=== PATIENT | male | born 1975 | race Caucasian/White ===

== ENCOUNTER 2018-08-24 08:10 | Observation (INO) | payer MEDICARE ==
[2018-08-24] MEDS ORDERED: DUONEB 0.5-3 MG/3 ml Neb IH ONE ×2 (08:14→08:49)
--- NOTE | 2018-08-24 08:32 | ERPHSYRPT ---
- History of Present Illness Time Seen by Provider: 08/24/18 08:26 Source: patient Exam Limitations: no limitations Patient Subjective Stated Complaint: Pt states "I think I have a blood clot in my lungs again. I started getting a dry cough and short of breath this morning. I have COPD as well and am on 2 lpm O2 every day." Triage Nursing Assessment: Pt alert and oriented X 3, skin pwd Pt ambualtes with an upright steady gait, able to speak in clear full sentences. Pt arrived with no oxygen on stating that his battery on his oxygen machine. PT tachypneic and a little anxious. Physician History: 42-year-old white male with history of COPD, pulmonary embolism, DVT, diabetes type 2, cellulitis in the right leg Patient arrives with complaint of shortness of breath dry cough symptoms since 6 :00 this morning he states he feels like he has a blood clot in his lungs he states he had similar symptoms when a blood clot was noted last time. Patient is not having any chest chest pain no nausea no vomiting no fevers. Past medical history includes COPD, pulmonary embolism, diabetes type 2, cellulitis right lower extremities, DVT Past surgical history includes right knee replacement Social history former smoker Timing/Duration: today (6 AM) Activities at Onset: rest Severity of Dyspnea-Max: moderate Severity of Dyspnea-Current: moderate Possible Cause: occasional episodes (Similar episode with PE in the past.) Modifying Factors: Improves With: nothing Associated Symptoms: constant, cough, No intermittent, No anxiety, No chest pain /discomfort, No edema, No fever, No insomnia, No loss of appetite, No lightheadedness, No wheezing, No weakness, No ankle swelling, No chills, No hemoptysis, No calf pain, No dizziness, No heaviness, No heart racing, No lightheadedness, No leg swelling, No muscle spasms feet, No muscle spasms hands , No painful breathing, No productive cough, No sweating, No tightness, No tingling face, No tingling hands Allergies/Adverse Reactions: No Known Drug Allergies Allergy (Verified 08/24/18 10:35) Home Medications: Furosemide 40 mg [Lasix 40 MG] 40 mg PO DAILY 08/09/15 [History] Pregabalin [Lyrica 100Mg] 200 mg PO BID 09/06/16 [History] Insulin Glargine [Lantus Insulin] 15 unit SQ 2000 07/28/17 [History] Metformin HCl [Glucophage] 1,000 mg PO BID 07/28/17 [History] Oxycodone / APAP 10/325 mg [Oxycodone-Acetaminophen 10-325] 1 tab PO Q6HPRN PRN 09/09/17 [History] Albuterol 8 gm Mdi Hfa [Ventolin Hfa MDI] 1 - 2 puffs IH Q4-6HPRN PRN 05/04 [History] Amlodipine Besylate [Norvasc] 10 mg PO DAILY 08/24/18 [History] Glipizide [Glipizide ER] 10 mg PO DAILY 08/24/18 [History] Metoprolol Succinate 100 mg [Toprol Xl 100 MG] 200 mg PO DAILY 08/24/18 [ History] Pravastatin Sodium 40 mg PO DAILY 08/24/18 [History] Warfarin Sodium 12 mg PO HS 08/24/18 [History] Hx Tetanus, Diphtheria Vaccination/Date Given: Yes Hx Influenza Vaccination/Date Given: Yes Hx Pneumococcal Vaccination/Date Given: Yes Immunizations Up to Date: Yes - Review of Systems Constitutional: No Fever, No Chills Eyes: No Symptoms Ears, Nose, & Throat: No Symptoms Respiratory: Cough, Dyspnea Cardiac: No Chest Pain, No Edema, No Syncope Abdominal/Gastrointestinal: No Abdominal Pain, No Nausea, No Vomiting, No Diarrhea Genitourinary Symptoms: No Dysuria Musculoskeletal: Other (chronic lower extremity pain) Skin: No Rash Neurological: No Dizziness, No Focal Weakness, No Sensory Changes Psychological: No Symptoms Endocrine: No Symptoms All Other Systems: Reviewed and Negative - Past Medical History Pertinent Past Medical History: Yes Neurological History: No Pertinent History ENT History: No Pertinent History Cardiac History: Deep Vein Thrombosis, Hypertension Respiratory History: COPD, Pulmonary Embolism Endocrine Medical History: Diabetes Type II Musculoskeletal History: No Pertinent History GI Medical History: No Pertinent History History: No Pertinent History Psycho-Social History: No Pertinent History Male Reproductive Disorders: No Pertinent History - Past Surgical History Past Surgical History: Yes Neuro Surgical History: No Pertinent History Cardiac: No Pertinent History Respiratory: No Pertinent History Gastrointestinal: No Pertinent History Genitourinary: No Pertinent History Musculoskeletal: Orthopedic Surgery Male Surgical History: No Pertinent History Other Surgical History: KNEE REPLACEMENT R KNEE - Social History Smoking Status: Former smoker How long have you smoked: 25 YEARS Exposure to second hand smoke: No Drug Use: none Patient Lives Alone: No Significant Family History: no pertinent family hx - Nursing Vital Signs Nursing Vital Signs: Initial Vital Signs Temperature 98.8 F 08/24/18 08:11 Pulse Rate 107 H 08/24/18 08:11 Respiratory Rate 24 08/24/18 08:11 Blood Pressure 122/84 08/24/18 08:11 O2 Sat by Pulse Oximetry 95 08/24/18 08:11 Pain Scale Pain Intensity 0 - Physical Exam General Appearance: mild distress, alert Eye Exam: PERRL/EOMI Ears, Nose, Throat Exam: hearing grossly normal, normal ENT inspection, normal pharynx, No abnormal TM (R), No abnormal TM (L), No sinus pain/drainage, No hearing decreased, No nasal congestion, No pharyngeal erythema, No tonsillar exudate, No tonsillar swelling Neck Exam: normal inspection, supple Respiratory Exam: normal breath sounds, lungs clear, airway intact, No wheezing Cardiovascular/Chest Exam: normal heart sounds, regular rate/rhythm Abdominal/Gastrointestinal Exam: soft, No tenderness, No distention, No mass Extremity Exam: non-tender, normal range of motion, normal inspection, no calf tenderness, no pedal edema Peripheral Pulses Exam: dorsalis-pedis (R): 2+, dorsalis-pedis (L): 2+ Neurologic Exam: alert, oriented x 3, cooperative, accounting associate II-XII nml as tested, sensation nml, No motor deficits Skin Exam: other (chronic darkening of skin lower extremities) SpO2 Interpretation: normal (95%) SpO2: 95 - Course Nursing assessment & vital signs reviewed: Yes EKG Interpreted by Me: RATE (95 bpm), NORMAL AXIS, Other (EKG sinus arrhythmia, 95 bpm, normal axis, complete right bundle block no acute st or t wave changes, compared to October 22, 2016) - Radiology Exams Chest X-ray Interpretation: Discussed w/ radiologist (chest x-ray: Stable non-acute chest with evidence for old granulomatous disease.) Ordered Tests: Active Orders 24 hr Category Date Time Status Bedrest with BRP/BSC ROUTINE Activity 08/24/18 10:07 Active Accucheck ACHS Care 08/24/18 10:06 Active Accucheck STAT Care 08/24/18 09:58 Active Call Admit Doctor for Orders ON ADMISSION Care 08/24/18 10:06 Active [place] STAT Care 08/24/18 08:15 Active Code Status Order ROUTINE Care 08/24/18 10:06 Active EKG-ER Only STAT Care 08/24/18 08:14 Active IV Care Q6H Care 08/24/18 10:06 Active IV Insertion STAT Care 08/24/18 08:14 Active Oxygen-ED Only Nasal Cannula 2 lpm Care 08/24/18 08:[address] in Observation ROUTINE Care 08/24/18 10:06 Active Pulse Oximetry (ED) STAT Care 08/24/18 08:14 Active Telemetry q6h Care 08/24/18 10:06 Active Weight,Daily 0600 Care 08/24/18 10:06 Active 2000 Calorie ADA Diet 08/24/18 Lunch Completed CHEST 1 VIEW (PORTABLE) Stat Exams 08/24/18 08:15 Completed BLOOD CULTURE Stat Lab 08/24/18 08:25 Received CBC W DIFF Stat Lab 08/24/18 08:30 Completed CMP Stat Lab 08/24/18 08:30 Completed D-DIMER QUANTITATION Stat Lab 08/24/18 08:30 Completed Glucose,Critical Care Urgent Lab 08/24/18 08:16 Completed NT PRO BNP Stat Lab 08/24/18 08:30 Completed PROTIME WITH INR Stat Lab 08/24/18 08:30 Completed PTT Stat Lab 08/24/18 08:30 Completed TROPONIN Q3H Lab 08/24/18 08:30 Completed TROPONIN Q3H Lab 08/24/18 11:10 Completed TROPONIN Q3H Lab 08/24/18 14:10 Completed VENOUS BLOOD GAS Stat Lab 08/24/18 08:14 Completed Oxygen Nasal Cannula 2 lpm RT 08/24/18 10:06 Active Peak Expiratory Flow Rate ONCE RT 08/24/18 08:45 Active Pulse Oximetry CONTINUOUS RT 08/24/18 10:07 Active Respiratory Nebulizer STAT RT 08/24/18 10:15 Completed Respiratory Therapy Assessment DAILY RT 08/24/18 08:45 Completed Respiratory Therapy Assessment DAILY RT 08/24/18 10:13 Active Respiratory Therapy Consult ROUTINE RT 08/24/18 10:06 Completed Medication Summary Discontinued Medications Generic Name Dose Route Start Last Admin Trade Name Freq PRN Reason Stop Dose Admin Acetaminophen 650 mg 08/24/18 14:54 08/24/18 15:18 Tylenol 325 Mg PO 09/23/18 14:53 650 mg Q4H PRN PRN Administration PAIN AND/OR FEVER Albuterol Sulfate 2.5 mg 08/24/18 10:12 08/24/18 10:20 Proventil 2.5 Mg/3 Ml Neb IH 08/24/18 10:13 2.5 mg STAT ONE Administration Albuterol Sulfate Confirm 08/24/18 10:12 Proventil 2.5 Mg/3 Ml Neb Administered 08/24/18 10:13 Dose 2.5 mg IH .STK-MED ONE Albuterol/Ipratropium 3 ml 08/24/18 08:14 08/24/18 08:51 Duoneb 0.5-3 Mg/3 Ml Neb IH 08/24/18 08:15 3 ml STAT ONE Administration Albuterol/Ipratropium Confirm 08/24/18 08:49 Duoneb 0.5-3 Mg/3 Ml Neb Administered 08/24/18 08:50 Dose 3 ml IH .STK-MED ONE Albuterol/Ipratropium 3 ml 08/24/18 10:06 Duoneb 0.5-3 Mg/3 Ml Neb IH 09/23/18 10:05 Q4HPRN PRN SHORTNESS OF BREATH/WHEEZING Albuterol/Ipratropium 3 ml 08/24/18 13:00 Duoneb 0.5-3 Mg/3 Ml Neb IH 09/23/18 12:59 TIDRT JOHN Amlodipine Besylate 10 mg 08/24/18 14:00 08/24/18 14:45 Norvasc 5 Mg PO 09/23/18 13:59 10 mg DAILY JOHN Administration Furosemide 40 mg 08/24/18 14:00 08/24/18 14:45 Lasix 40 Mg PO 09/23/18 13:59 40 mg DAILY JOHN Administration Sodium Chloride 1,000 mls @ 999 mls/hr 08/24/18 09:14 08/24/18 10:19 Sodium Chloride 0.9% 1000 Ml IV 08/24/18 10:14 Infused .Q1H1M STA Infusion Sodium Chloride Confirm 08/24/18 09:28 Sodium Chloride 0.9% 1000 Ml Administered 08/24/18 09:29 Dose 1,000 mls @ ud .ROUTE .STK-MED ONE Sodium Chloride 1,000 mls @ 100 mls/hr 08/24/18 10:15 08/24/18 12:00 Sodium Chloride 0.9% 1000 Ml IV 09/23/18 10:14 100 mls/hr .Q10H JOHN Administration Insulin Glargine 15 unit 08/24/18 20:00 Lantus Insulin SQ 09/23/18 19:59 2000 JOHN Insulin Human Regular 7 unit 08/24/18 10:05 08/24/18 10:12 Novolin R SQ 08/24/18 10:06 7 unit STAT ONE Administration Insulin Human Regular 0 unit 08/24/18 10:06 08/24/18 17:01 Novolin R SQ 09/23/18 10:05 11 unit UD PRN Administration HYPERGLYCEMIA Losartan Potassium 100 mg 08/24/18 14:00 08/24/18 14:45 Cozaar 50 Mg PO 09/23/18 13:59 100 mg DAILY JOHN Administration Methylprednisolone Sodium Succinate 125 mg 08/24/18 09:58 08/24/18 10:05 Solu-Medrol 125 Mg IV 08/24/18 09:59 125 mg STAT ONE Administration Methylprednisolone Sodium Succinate Confirm 08/24/18 10:04 Solu-Medrol 125 Mg Administered 08/24/18 10:05 Dose 125 mg .ROUTE .STK-MED ONE Methylprednisolone Sodium Succinate 80 mg 08/24/18 10:30 08/24/18 10:39 Solu-Medrol 125 Mg IV 09/23/18 10:29 Not Given Q6H JOHN Methylprednisolone Sodium Succinate 80 mg 08/24/18 18:00 Solu-Medrol 125 Mg IV 09/23/18 17:59 Q6HT JOHN Metoprolol Succinate 200 mg 08/24/18 14:00 08/24/18 14:45 Toprol Xl 100 Mg PO 09/23/18 13:59 200 mg DAILY JOHN Administration Miscellaneous Information 1 each 08/24/18 15:15 Medication Intervention PO 09/23/18 15:14 .RN TO CHECK ON [facility] Oxycodone/Acetaminophen 1 tab 08/24/18 12:58 Oxycodone-Acetaminophen 10-325 PO 08/29/18 12:57 Q6HPRN PRN PAIN Pregabalin 200 mg 08/24/18 14:00 08/24/18 14:45 Lyrica 100mg PO 09/23/18 13:59 200 mg BID JOHN Administration Simvastatin 40 mg 08/24/18 14:00 08/24/18 14:45 Zocor 20mg PO 09/23/18 13:59 40 mg DAILY [facility] Administration Warfarin Sodium 12 mg 08/24/18 18:00 Coumadin 3 Mg PO 09/23/18 17:59 COU [facility] Lab/Rad Data: Laboratory Result Diagrams 08/24/18 08:30 08/24/18 08:30 Laboratory Results 08/24/18 08/24/18 08/24/18 Range/Units 08:30 08:30 08:30 WBC (4.0-10.5) K/mm3 RBC (4.1-5.6) M/mm3 Hgb (12.5-18.0) gm/dl Hct (42-50) % MCV (78-100) fl MCH (26-32) pg MCHC (32-36) g/dl RDW (11.5-14.0) % Plt Count (150-450) K/mm3 MPV (6-9.5) fl Gran % (36.0-66.0) % Eos # (Auto) (0-0.5) Absolute Lymphs (auto) (1.0-4.6) Absolute Monos (auto) (0.0-1.3) Lymphocytes % (24.0-44.0) % Monocytes % (0.0-12.0) % Eosinophils % (0.00-5.0) % Basophils % (0.0-0.4) % Absolute Granulocytes (1.4-6.9) Basophils # (0-0.4) PT 39.2 H (8.83-12.87) SECONDS INR 3.33 H (0.8-3.0) APTT 40.0 H (24.1-36.1) SECONDS D-Dimer < 215 L (215-500) ng/mL pO2/FiO2 Ratio % VBG pH (7.32-7.42) VBG pCO2 at Pat Temp (42-55) mm/Hg VBG pO2 at Pat Temp (25-40) mm/Hg VBG HCO3 (22-28) meq/L VBG O2 Sat ([place]) (95-100) VBG Base Excess (-2.0-2.0) VBG Hemoglobin VBG Carboxyhemoglobin (0.0-6.9) % T HGB POC Potassium (3.5-5.1) Glucose 299 H (70-110) Sodium 137 (137-145) mmol/L Potassium 3.8 (3.5-5.1) mmol/L Chloride 97 L (98-107) mmol/L Carbon Dioxide 28 (22-30) mmol/L Anion Gap 16.0 H (5-15) MEQ/L BUN 11 (9-20) mg/dL Creatinine 0.60 L (0.66-1.25) mg/dL Estimated GFR > 60.0 ML/MIN Hemoglobin A1c (4.5-6.0) % Calcium 8.9 (8.4-10.2) mg/dL Total Bilirubin 0.80 (0.2-1.3) mg/dL AST 25 (17-59) U/L ALT 39 (0-50) U/L Alkaline Phosphatase 86 (38-126) U/L Troponin I < 0.012 (0.000-0.034) ng/mL NT-Pro-B Natriuret Pep < 11.1 (0-450) pg/mL Serum Total Protein 7.6 (6.3-8.2) g/dL Albumin 4.3 (3.5-5.0) g/dL 08/24/18 08/24/18 08/24/18 Range/Units 08:30 08:16 08:14 WBC 7.0 (4.0-10.5) K/mm3 RBC 5.77 H (4.1-5.6) M/mm3 Hgb 16.1 (12.5-18.0) gm/dl Hct 48.2 (42-50) % MCV 83.5 (78-100) fl MCH 27.9 (26-32) pg MCHC 33.4 (32-36) g/dl RDW 15.1 H (11.5-14.0) % Plt Count 168 (150-450) K/mm3 MPV 10.4 H (6-9.5) fl Gran % 63.1 (36.0-66.0) % Eos # (Auto) 0.25 (0-0.5) Absolute Lymphs (auto) 1.75 (1.0-4.6) Absolute Monos (auto) 0.53 (0.0-1.3) Lymphocytes % 25.1 (24.0-44.0) % Monocytes % 7.6 (0.0-12.0) % Eosinophils % 3.6 (0.00-5.0) % Basophils % 0.6 (0.0-0.4) % Absolute Granulocytes 4.39 (1.4-6.9) Basophils # 0.04 (0-0.4) PT (8.83-12.87) SECONDS INR (0.8-3.0) APTT (24.1-36.1) SECONDS D-Dimer (215-500) ng/mL pO2/FiO2 Ratio % VBG pH (7.32-7.42) VBG pCO2 at Pat Temp (42-55) mm/Hg VBG pO2 at Pat Temp (25-40) mm/Hg VBG HCO3 (22-28) meq/L VBG O2 Sat ([place]) (95-100) VBG Base Excess (-2.0-2.0) VBG Hemoglobin VBG Carboxyhemoglobin (0.0-6.9) % T HGB POC Potassium (3.5-5.1) Glucose 314 H (70-110) Sodium (137-145) mmol/L Potassium (3.5-5.1) mmol/L Chloride (98-107) mmol/L Carbon Dioxide (22-30) mmol/L Anion Gap (5-15) MEQ/L BUN (9-20) mg/dL Creatinine (0.66-1.25) mg/dL Estimated GFR ML/MIN Hemoglobin A1c 9.94 H (4.5-6.0) % Calcium (8.4-10.2) mg/dL Total Bilirubin (0.2-1.3) mg/dL AST (17-59) U/L ALT (0-50) U/L Alkaline Phosphatase (38-126) U/L Troponin I (0.000-0.034) ng/mL NT-Pro-B Natriuret Pep (0-450) pg/mL Serum Total Protein (6.3-8.2) g/dL Albumin (3.5-5.0) g/dL 08/24/18 Range/Units 08:14 WBC (4.0-10.5) K/mm3 RBC (4.1-5.6) M/mm3 Hgb (12.5-18.0) gm/dl Hct (42-50) % MCV (78-100) fl MCH (26-32) pg MCHC (32-36) g/dl RDW (11.5-14.0) % Plt Count (150-450) K/mm3 MPV (6-9.5) fl Gran % (36.0-66.0) % Eos # (Auto) (0-0.5) Absolute Lymphs (auto) (1.0-4.6) Absolute Monos (auto) (0.0-1.3) Lymphocytes % (24.0-44.0) % Monocytes % (0.0-12.0) % Eosinophils % (0.00-5.0) % Basophils % (0.0-0.4) % Absolute Granulocytes (1.4-6.9) Basophils # (0-0.4) PT (8.83-12.87) SECONDS INR (0.8-3.0) APTT (24.1-36.1) SECONDS D-Dimer (215-500) ng/mL pO2/FiO2 Ratio 28.0 % VBG pH 7.36 (7.32-7.42) VBG pCO2 at Pat Temp 51 (42-55) mm/Hg VBG pO2 at Pat Temp 34 (25-40) mm/Hg VBG HCO3 28.8 H (22-28) meq/L VBG O2 Sat ([place]) 73.9 L (95-100) VBG Base Excess 2.1 H (-2.0-2.0) VBG Hemoglobin 16.9 VBG Carboxyhemoglobin 2.6 (0.0-6.9) % T HGB POC Potassium 3.9 (3.5-5.1) Glucose (70-110) Sodium (137-145) mmol/L Potassium (3.5-5.1) mmol/L Chloride (98-107) mmol/L Carbon Dioxide (22-30) mmol/L Anion Gap (5-15) MEQ/L BUN (9-20) mg/dL Creatinine (0.66-1.25) mg/dL Estimated GFR ML/MIN Hemoglobin A1c (4.5-6.0) % Calcium (8.4-10.2) mg/dL Total Bilirubin (0.2-1.3) mg/dL AST (17-59) U/L ALT (0-50) U/L Alkaline Phosphatase (38-126) U/L Troponin I (0.000-0.034) ng/mL NT-Pro-B Natriuret Pep (0-450) pg/mL Serum Total Protein (6.3-8.2) g/dL Albumin (3.5-5.0) g/dL - Progress Progress: improved Progress Note: 08/24/18 09:59 42-year-old morbidly obese white male with history of COPD PE, diabetes type 2, DVTs cellulitis right leg. Patient arrives with complaint of shortness of breath since 6 AM this morning, He states he feels like he has a blood clot in his lungs, Patient with chest x-ray essentially normal patient with the EKG remarkable for sinus arrhythmia, 95 bpm normal axis complete right bundle branch block no acute changes as compared to October 22, 2016 Chest x-ray no acute changes old granulomatous disease. Patient's chemistry remarkable for elevated glucose of 299 otherwise essentially normal patient's CBC white blood cell 7.0 hemoglobin 16.1 hematocrit 48.2-90 patient's d-dimer less than 215, patient's INR is 3.33. Patient is given a DuoNeb treatment remain short of breath. Although patient did have a normal d-dimer I did decide to try to get a CTA of the chest because of his strong history of DVTs and PEs however patient would not tolerate laying down for a CTA. I have discussed the patient's case with Dr. Cohn. Patient is receiving 1 L of normal saline. His Accu-Chek was is 303. Patient will be receiving Solu-Medrol [address] patient on telemetry will give patient albuterol treatment here in the emergency room then plan on placing him on observation with steroids. And coverage for his low blood sugars. Will continue troponin. Impression 1 shortness of breath. 2 COPD. 3 hyperglycemia. Patient does not show signs of infection at this time will not give antibiotics. - Departure Time of Disposition: 10:03 Departure Disposition: Observation Clinical Impression: Shortness of breath, Hyperglycemia COPD (chronic obstructive pulmonary disease) Qualifiers: COPD type: unspecified COPD Qualified Code(s): J44.9 - Chronic obstructive pulmonary disease, unspecified Condition: Good Critical Care Time: No
[2018-08-24 08:40] LABS: VBG BASE EXCESS 2.1 (-2.0-2.0); VBG CARBOXYHEMOGLOBIN 2.6 % T HGB (0.0-6.9); VBG HCO3- 28.8 meq/L (22-28); VBG HEMOGLOBIN 16.9; VBG O2 SATURATION 73.9 (95-100); VBG POTASSIUM 3.9 (3.5-5.1); VBG pH 7.36 (7.32-7.42)
[2018-08-24 08:43] LABS: BASOPHIL % 0.6 % (0.0-0.4); Basophil (Absolute #) 0.04 (0-0.4); Eosinophil % 3.6 % (0.00-5.0); Eosinophil (Absolute #) 0.25 (0-0.5); Granulocyte Absolute (ANC) 4.39 (1.4-6.9); Granulocytes % 63.1 % (36.0-66.0); Hematocrit 48.2 % (42-50); Hemoglobin 16.1 gm/dl (12.5-18.0); Lymphocyte (Absolute #) 1.75 (1.0-4.6); Lymphocytes % 25.1 % (24.0-44.0); Mean Cell Volume 83.5 fl (78-100); Mean Corpuscular Hemoglobin 27.9 pg (26-32); Mean Corpuscular Hgb Concent. 33.4 g/dl (32-36); Mean Platelet Volume 10.4 fl (6-9.5); Monocyte (Absolute #) 0.53 (0.0-1.3); Monocytes % 7.6 % (0.0-12.0); Platelet Count 168 K/mm3 (150-450); Red Blood Count 5.77 M/mm3 (4.1-5.6); Red Cell Distribution Width 15.1 % (11.5-14.0)
[2018-08-24 08:49] LABS: INR 3.33 (0.8-3.0); PROTIME 39.2 SECONDS (8.83-12.87)
--- NOTE | 2018-08-24 08:52 | XRAY ---
Indication: Short of breath. Comparison: November 20, 2015. Portable apical lordotic chest remains clear. Heart and mediastinal structures within normal limits again with chunky subcarinal and right perihilar nodes. Bony thorax intact. Impression: Stable nonacute chest with again evidence for old granulomatous disease.
[2018-08-24 08:53] LABS: D-DIMER QUANTITATION < 215 ng/mL (215-500)
[2018-08-24 09:02] LABS: ALBUMIN 4.3 g/dL (3.5-5.0); ALKALINE PHOSPHATASE 86 U/L (38-126); BLOOD UREA NITROGEN 11 mg/dL (9-20); CHLORIDE 97 mmol/L (98-107); Calcium 8.9 mg/dL (8.4-10.2); Carbon Dioxide 28 mmol/L (22-30); Glucose 299 mg/dL (74-106); NT PRO BNP < 11.1 pg/mL (0-450); Potassium 3.8 mmol/L (3.5-5.1); SGOT/AST 25 U/L (17-59); SGPT/ALT 39 U/L (0-50); SODIUM 137 mmol/L (137-145); Total Protein 7.6 g/dL (6.3-8.2)
[2018-08-24] MEDS ORDERED: Sodium Chloride 0.9% 1000 ML 1,000 ML IV STA (09:14)
[2018-08-24] MEDS ORDERED: Sodium Chloride 0.9% 1000 ML 1,000 ML ONE (09:28)
[2018-08-24] MEDS ORDERED: solu-MEDROL 125 MG IV ONE (09:58)
[2018-08-24] MEDS ORDERED: solu-MEDROL 125 MG ONE (10:04)
[2018-08-24] MEDS ORDERED: NovoLIN R SQ ONE (10:05)
[2018-08-24] MEDS ORDERED: DUONEB 0.5-3 MG/3 ml Neb IH PRN (10:06)
[2018-08-24] MEDS ORDERED: PROVENTIL 2.5 MG/3 ML NEB IH ONE ×3 (10:12→10:15)
[2018-08-24] MEDS ORDERED: Sodium Chloride 0.9% 1000 ML 1,000 ML IV SCH (10:15)
[2018-08-24] MEDS ORDERED: solu-MEDROL 125 MG IV SCH ×2 (10:30→18:00)
[2018-08-24] MEDS: NovoLIN R SQ PRN ×2 (11:55→17:01)
[2018-08-24] MEDS ORDERED: OXYCODONE-ACETAMINOPHEN 10-325 PO PRN (12:58)
[2018-08-24] MEDS ORDERED: DUONEB 0.5-3 MG/3 ml Neb IH SCH (13:00)
[2018-08-24] MEDS ORDERED: NORVASC 5 MG PO SCH (14:00)
[2018-08-24] MEDS ORDERED: LYRICA 100MG PO SCH (14:00)
[2018-08-24] MEDS ORDERED: ZOCOR 20MG PO SCH (14:00)
[2018-08-24] MEDS ORDERED: Cozaar 50 MG PO SCH (14:00)
[2018-08-24] MEDS ORDERED: Toprol Xl 100 MG PO SCH (14:00)
[2018-08-24] MEDS ORDERED: Lasix 40 MG PO SCH (14:00)
[2018-08-24] MEDS ORDERED: TYLENOL 325 MG PO PRN (14:54)
[2018-08-24] MEDS ORDERED: MEDICATION INTERVENTION PO SCH (15:15)
[2018-08-24 15:36] VITALS: BP 167/82; PULSE 97
--- NOTE | 2018-08-24 16:41 | PCM.SSS ---
History of Present Illness - Chief Complaint Chief Complaint: COPD. Hyperglycemia. History of Present Illness: is a 42 year old male who presented to the ER today with acute onset of shortness of breath. He has a history of PE and is on warfarin, normally sees Dr Navarro. He had a negative d-dimer and therapeutic INR in ER, sugar was high but blood gases were fairly normal. He is morbidly obese, has copd and is on 2L oxygen therapy at home continuously. patient reports his shortness of breath has resolved after receiving a nebulizer treatment and he insists to go home. Nursing thought he would sign out AMA earlier but he agreed to stay until I could see him. - Review of Systems Constitutional: No Fever, No Chills Respiratory: Short Of Breath, No Cough, No Wheezing Cardiac: No Chest Pain, No Edema, No Syncope Abdominal/Gastrointestinal: No Abdominal Pain, No Nausea, No Vomiting, No Diarrhea Genitourinary Symptoms: No Dysuria Skin: No Rash Neurological: No Dizziness, No Focal Weakness, No Sensory Changes All Other Systems: Reviewed and Negative Medications & Allergies Home Medications: Home Medication List Furosemide 40 mg [Lasix 40 MG] 40 mg PO DAILY 08/09/15 [History Confirmed 08/24/18] Losartan Potassium [Cozaar 100Mg Tablet] 100 mg PO DAILY #30 tablet 12/01/15 [ Rx Confirmed 08/24/18] Pregabalin [Lyrica 100Mg] 200 mg PO BID 09/06/16 [History Confirmed 08/24/18] Insulin Glargine [Lantus Insulin] 15 unit SQ 2000 07/28/17 [History Confirmed 08/24/18] Metformin HCl [Glucophage] 1,000 mg PO BID 07/28/17 [History Confirmed 08/24/18] Oxycodone / APAP 10/325 mg [Oxycodone-Acetaminophen 10-325] 1 tab PO Q6HPRN PRN 09/09/17 [History Confirmed 08/24/18] Albuterol 8 gm Mdi Hfa [Ventolin Hfa MDI] 1 - 2 puffs IH Q4-6HPRN PRN 05/04 [History Confirmed 08/24/18] Albuterol/Ipratropium 3ml Neb* [DUONEB 0.5-3 MG/3 ml Neb] 3 ml IH Q4HPRN PRN # 100 ampul.neb 08/24/18 [Rx] Amlodipine Besylate [Norvasc] 10 mg PO DAILY 08/24/18 [History Confirmed ] Glipizide [Glipizide ER] 10 mg PO DAILY 08/24/18 [History Confirmed 08/24/18] Methylprednisolone Packet [Medrol Dosepack] 4 mg PO UD #1 packet 08/24/18 [Rx] Metoprolol Succinate 100 mg [Toprol Xl 100 MG] 200 mg PO DAILY 08/24/18 [ History Confirmed 08/24/18] Pravastatin Sodium 40 mg PO DAILY 08/24/18 [History Confirmed 08/24/18] Warfarin Sodium 12 mg PO HS 08/24/18 [History Confirmed 08/24/18] Allergies/Adverse Reactions: Allergies Allergy/AdvReac Type Severity Reaction Status Date / Time No Known Drug Allergies Allergy Verified 08/24/18 10:35 - Past Medical History Past Medical History: Yes Neurological History: No Pertinent History ENT History: No Pertinent History Cardiac History: Deep Vein Thrombosis, Hypertension Respiratory History: COPD, Pulmonary Embolism Endocrine Medical History: Diabetes Type II Musculoskelatal History: No Pertinent History GI Medical History: No Pertinent History History: No Pertinent History Pyscho-Social History: No Pertinent History Male Reproductive Disorders: No Pertinent History - Past Surgical History Past Surgical History: Yes Neuro Surgical History: No Pertinent History Cardiac History: No Pertinent History Respiratory Surgery: No Pertinent History GI Surgical History: No Pertinent History Genitourinary Surgical Hx: No Pertinent History Musculskeletal Surgical Hx: Orthopedic Surgery Male Surgical History: No Pertinent History Other Surgical History: KNEE REPLACEMENT R KNEE - Social History Smoking Status: Former smoker How long have you smoked: 25 YEARS Exposure to second hand smoke: No Alcohol: None Drug Use: none Significant Family History: no pertinent family hx - Physical Exam Vital Signs: Vital Signs - 24 hr Temp Pulse Resp BP Pulse Ox 08/24/18 16:00 18 08/24/18 15:35 98.1 F 97 H 18 167/82 93 L 08/24/18 14:00 93 L 08/24/18 12:00 18 08/24/18 11:18 98.2 F 98 H 18 178/92 97 08/24/18 10:55 85 22 95 08/24/18 10:53 98.7 F 98 H 22 127/60 98 08/24/18 10:37 98.2 F 98 H 18 178/92 97 08/24/18 10:29 98.8 F 85 20 126/62 94 L 08/24/18 10:16 85 20 94 L 08/24/18 10:04 95 08/24/18 10:03 98.8 F 98 H 20 126/62 95 08/24/18 09:06 94 H 24 94 L 08/24/18 09:05 100 H 18 142/82 94 L 08/24/18 08:38 97 08/24/18 08:11 98.8 F 107 H 24 122/84 94 L Oxygen-Last 24 hours O2 Percentage 2 Liters = 28% O2 Percentage 2 Liters = 28% O2 Percentage 2 Liters = 28% O2 Percentage 2 Liters = 28% O2 Percentage 2 Liters = 28% O2 Percentage 2 Liters = 28% O2 Percentage 2 Liters = 28% O2 Percentage 4 Liters = 36% General Appearance: obese Neurologic Exam: alert, oriented x 3 Eye Exam: PERRL/EOMI, eyes nml inspection Respiratory Exam: lungs clear, prolonged expirations Cardiovascular Exam: regular rate/rhythm, normal heart sounds, normal peripheral pulses Gastrointestinal/Abdomen Exam: soft, normal bowel sounds, No tenderness, No mass Extremity Exam: normal inspection, normal range of motion, pelvis stable Skin Exam: normal color, warm, dry, No rash Results - Labs Lab/Micro Results: Accuchecks Date 08/24/18 Time 11:30 Accucheck Value: 281 Accucheck Value: 303 Lab Results-Last 24 Hours 08/24/18 08/24/18 08/24/18 Range/Units 08:14 08:14 08:16 WBC (4.0-10.5) K/mm3 RBC (4.1-5.6) M/mm3 Hgb (12.5-18.0) gm/dl Hct (42-50) % MCV (78-100) fl MCH (26-32) pg MCHC (32-36) g/dl RDW (11.5-14.0) % Plt Count (150-450) K/mm3 MPV (6-9.5) fl Gran % (36.0-66.0) % Eos # (Auto) (0-0.5) Absolute Lymphs (auto) (1.0-4.6) Absolute Monos (auto) (0.0-1.3) Lymphocytes % (24.0-44.0) % Monocytes % (0.0-12.0) % Eosinophils % (0.00-5.0) % Basophils % (0.0-0.4) % Absolute Granulocytes (1.4-6.9) Basophils # (0-0.4) PT (8.83-12.87) SECONDS INR (0.8-3.0) APTT (24.1-36.1) SECONDS D-Dimer (215-500) ng/mL pO2/FiO2 Ratio 28.0 % VBG pH 7.36 (7.32-7.42) VBG pCO2 at Pat Temp 51 (42-55) mm/Hg VBG pO2 at Pat Temp 34 (25-40) mm/Hg VBG HCO3 28.8 H (22-28) meq/L VBG O2 Sat ([place]) 73.9 L (95-100) VBG Base Excess 2.1 H (-2.0-2.0) VBG Hemoglobin 16.9 VBG Carboxyhemoglobin 2.6 (0.0-6.9) % T HGB POC Potassium 3.9 (3.5-5.1) Glucose 314 H (70-110) Sodium (137-145) mmol/L Potassium (3.5-5.1) mmol/L Chloride (98-107) mmol/L Carbon Dioxide (22-30) mmol/L Anion Gap (5-15) MEQ/L BUN (9-20) mg/dL Creatinine (0.66-1.25) mg/dL Estimated GFR ML/MIN Hemoglobin A1c 9.94 H (4.5-6.0) % Calcium (8.4-10.2) mg/dL Total Bilirubin (0.2-1.3) mg/dL AST (17-59) U/L ALT (0-50) U/L Alkaline Phosphatase (38-126) U/L Troponin I (0.000-0.034) ng/mL NT-Pro-B Natriuret Pep (0-450) pg/mL Serum Total Protein (6.3-8.2) g/dL Albumin (3.5-5.0) g/dL 08/24/18 08/24/18 08/24/18 Range/Units 08:30 08:30 08:30 WBC 7.0 (4.0-10.5) K/mm3 RBC 5.77 H (4.1-5.6) M/mm3 Hgb 16.1 (12.5-18.0) gm/dl Hct 48.2 (42-50) % MCV 83.5 (78-100) fl MCH 27.9 (26-32) pg MCHC 33.4 (32-36) g/dl RDW 15.1 H (11.5-14.0) % Plt Count 168 (150-450) K/mm3 MPV 10.4 H (6-9.5) fl Gran % 63.1 (36.0-66.0) % Eos # (Auto) 0.25 (0-0.5) Absolute Lymphs (auto) 1.75 (1.0-4.6) Absolute Monos (auto) 0.53 (0.0-1.3) Lymphocytes % 25.1 (24.0-44.0) % Monocytes % 7.6 (0.0-12.0) % Eosinophils % 3.6 (0.00-5.0) % Basophils % 0.6 (0.0-0.4) % Absolute Granulocytes 4.39 (1.4-6.9) Basophils # 0.04 (0-0.4) PT 39.2 H (8.83-12.87) SECONDS INR 3.33 H (0.8-3.0) APTT 40.0 H (24.1-36.1) SECONDS D-Dimer < 215 L (215-500) ng/mL pO2/FiO2 Ratio % VBG pH (7.32-7.42) VBG pCO2 at Pat Temp (42-55) mm/Hg VBG pO2 at Pat Temp (25-40) mm/Hg VBG HCO3 (22-28) meq/L VBG O2 Sat ([place]) (95-100) VBG Base Excess (-2.0-2.0) VBG Hemoglobin VBG Carboxyhemoglobin (0.0-6.9) % T HGB POC Potassium (3.5-5.1) Glucose 299 H (70-110) Sodium 137 (137-145) mmol/L Potassium 3.8 (3.5-5.1) mmol/L Chloride 97 L (98-107) mmol/L Carbon Dioxide 28 (22-30) mmol/L Anion Gap 16.0 H (5-15) MEQ/L BUN 11 (9-20) mg/dL Creatinine 0.60 L (0.66-1.25) mg/dL Estimated GFR > 60.0 ML/MIN Hemoglobin A1c (4.5-6.0) % Calcium 8.9 (8.4-10.2) mg/dL Total Bilirubin 0.80 (0.2-1.3) mg/dL AST 25 (17-59) U/L ALT 39 (0-50) U/L Alkaline Phosphatase 86 (38-126) U/L Troponin I (0.000-0.034) ng/mL NT-Pro-B Natriuret Pep < 11.1 (0-450) pg/mL Serum Total Protein 7.6 (6.3-8.2) g/dL Albumin 4.3 (3.5-5.0) g/dL 08/24/18 08/24/18 08/24/18 Range/Units 08:30 11:10 14:10 WBC (4.0-10.5) K/mm3 RBC (4.1-5.6) M/mm3 Hgb (12.5-18.0) gm/dl Hct (42-50) % MCV (78-100) fl MCH (26-32) pg MCHC (32-36) g/dl RDW (11.5-14.0) % Plt Count (150-450) K/mm3 MPV (6-9.5) fl Gran % (36.0-66.0) % Eos # (Auto) (0-0.5) Absolute Lymphs (auto) (1.0-4.6) Absolute Monos (auto) (0.0-1.3) Lymphocytes % (24.0-44.0) % Monocytes % (0.0-12.0) % Eosinophils % (0.00-5.0) % Basophils % (0.0-0.4) % Absolute Granulocytes (1.4-6.9) Basophils # (0-0.4) PT (8.83-12.87) SECONDS INR (0.8-3.0) APTT (24.1-36.1) SECONDS D-Dimer (215-500) ng/mL pO2/FiO2 Ratio % VBG pH (7.32-7.42) VBG pCO2 at Pat Temp (42-55) mm/Hg VBG pO2 at Pat Temp (25-40) mm/Hg VBG HCO3 (22-28) meq/L VBG O2 Sat ([place]) (95-100) VBG Base Excess (-2.0-2.0) VBG Hemoglobin VBG Carboxyhemoglobin (0.0-6.9) % T HGB POC Potassium (3.5-5.1) Glucose (70-110) Sodium (137-145) mmol/L Potassium (3.5-5.1) mmol/L Chloride (98-107) mmol/L Carbon Dioxide (22-30) mmol/L Anion Gap (5-15) MEQ/L BUN (9-20) mg/dL Creatinine (0.66-1.25) mg/dL Estimated GFR ML/MIN Hemoglobin A1c (4.5-6.0) % Calcium (8.4-10.2) mg/dL Total Bilirubin (0.2-1.3) mg/dL AST (17-59) U/L ALT (0-50) U/L Alkaline Phosphatase (38-126) U/L Troponin I < 0.012 < 0.012 < 0.012 (0.000-0.034) ng/mL NT-Pro-B Natriuret Pep (0-450) pg/mL Serum Total Protein (6.3-8.2) g/dL Albumin (3.5-5.0) g/dL Accuchecks Date 08/24/18 Time 11:30 Accucheck Value: 281 Accucheck Value: 303 - Radiology Impressions Radiology Exams & Impressions: Radiology Procedures Category Date Time Status CHEST 1 VIEW (PORTABLE) Stat Exams 08/24/18 08:15 Completed - Other Procedures and Tests Respiratory Therapy 08/24/18 08:45 Peak Expiratory Flow Rate ONCE 08/24/18 10:06 Oxygen Nasal Cannula 2 lpm 08/24/18 10:13 Respiratory Therapy Assessment DAILY Assessment/Plan (1) COPD exacerbation Current Visit: Yes Status: Acute Assessment & Plan: home on po medrol and nebs, he has albuterol at home. advised to monitor blood sugars at home and f/u with Dr Navarro as scheduled in 4 days. Code(s): J44.1 - CHRONIC OBSTRUCTIVE PULMONARY DISEASE W (ACUTE) EXACERBATION (2) Hyperglycemia Current Visit: Yes Status: Acute Assessment & Plan: will monitor blood sugars at home. Code(s): R73.9 - HYPERGLYCEMIA, UNSPECIFIED (3) Pulmonary embolism Current Visit: No Status: Acute Qualifiers: Pulmonary embolism type: other Chronicity: acute Acute cor pulmonale presence: without acute cor pulmonale Qualified Code(s): I26.99 - Other pulmonary embolism without acute cor pulmonale Code(s): I26.99 - OTHER PULMONARY EMBOLISM WITHOUT ACUTE COR PULMONALE Hospital Summary - Vitals & Intake/Output Vital Signs: Vital Signs Temperature 98.1 F 08/24/18 15:35 Pulse Rate 97 H 08/24/18 15:35 Respiratory Rate 18 08/24/18 16:00 Blood Pressure 167/82 08/24/18 15:35 O2 Sat by Pulse Oximetry 93 L 08/24/18 15:35 Oxygen-Last Documented O2 Percentage 2 Liters = 28% Intake & Output: Intake & Output 08/22/18 08/23/18 08/24/18 08/25/18 10:59 11:59 11:59 11:59 Intake Total 840 Balance 840 Weight 166.9 kg - Lab Result Diagrams: 08/24/18 08:30 08/24/18 08:30 Lab Results-Last 24 Hrs: Accuchecks Date 08/24/18 Time 11:30 Accucheck Value: 281 Accucheck Value: 303 Lab Results-Last 24 Hours 08/24/18 08/24/18 08/24/18 Range/Units 08:14 08:14 08:16 WBC (4.0-10.5) K/mm3 RBC (4.1-5.6) M/mm3 Hgb (12.5-18.0) gm/dl Hct (42-50) % MCV (78-100) fl MCH (26-32) pg MCHC (32-36) g/dl RDW (11.5-14.0) % Plt Count (150-450) K/mm3 MPV (6-9.5) fl Gran % (36.0-66.0) % Eos # (Auto) (0-0.5) Absolute Lymphs (auto) (1.0-4.6) Absolute Monos (auto) (0.0-1.3) Lymphocytes % (24.0-44.0) % Monocytes % (0.0-12.0) % Eosinophils % (0.00-5.0) % Basophils % (0.0-0.4) % Absolute Granulocytes (1.4-6.9) Basophils # (0-0.4) PT (8.83-12.87) SECONDS INR (0.8-3.0) APTT (24.1-36.1) SECONDS D-Dimer (215-500) ng/mL pO2/FiO2 Ratio 28.0 % VBG pH 7.36 (7.32-7.42) VBG pCO2 at Pat Temp 51 (42-55) mm/Hg VBG pO2 at Pat Temp 34 (25-40) mm/Hg VBG HCO3 28.8 H (22-28) meq/L VBG O2 Sat ([place]) 73.9 L (95-100) VBG Base Excess 2.1 H (-2.0-2.0) VBG Hemoglobin 16.9 VBG Carboxyhemoglobin 2.6 (0.0-6.9) % T HGB POC Potassium 3.9 (3.5-5.1) Glucose 314 H (70-110) Sodium (137-145) mmol/L Potassium (3.5-5.1) mmol/L Chloride (98-107) mmol/L Carbon Dioxide (22-30) mmol/L Anion Gap (5-15) MEQ/L BUN (9-20) mg/dL Creatinine (0.66-1.25) mg/dL Estimated GFR ML/MIN Hemoglobin A1c 9.94 H (4.5-6.0) % Calcium (8.4-10.2) mg/dL Total Bilirubin (0.2-1.3) mg/dL AST (17-59) U/L ALT (0-50) U/L Alkaline Phosphatase (38-126) U/L Troponin I (0.000-0.034) ng/mL NT-Pro-B Natriuret Pep (0-450) pg/mL Serum Total Protein (6.3-8.2) g/dL Albumin (3.5-5.0) g/dL 08/24/18 08/24/18 08/24/18 Range/Units 08:30 08:30 08:30 WBC 7.0 (4.0-10.5) K/mm3 RBC 5.77 H (4.1-5.6) M/mm3 Hgb 16.1 (12.5-18.0) gm/dl Hct 48.2 (42-50) % MCV 83.5 (78-100) fl MCH 27.9 (26-32) pg MCHC 33.4 (32-36) g/dl RDW 15.1 H (11.5-14.0) % Plt Count 168 (150-450) K/mm3 MPV 10.4 H (6-9.5) fl Gran % 63.1 (36.0-66.0) % Eos # (Auto) 0.25 (0-0.5) Absolute Lymphs (auto) 1.75 (1.0-4.6) Absolute Monos (auto) 0.53 (0.0-1.3) Lymphocytes % 25.1 (24.0-44.0) % Monocytes % 7.6 (0.0-12.0) % Eosinophils % 3.6 (0.00-5.0) % Basophils % 0.6 (0.0-0.4) % Absolute Granulocytes 4.39 (1.4-6.9) Basophils # 0.04 (0-0.4) PT 39.2 H (8.83-12.87) SECONDS INR 3.33 H (0.8-3.0) APTT 40.0 H (24.1-36.1) SECONDS D-Dimer < 215 L (215-500) ng/mL pO2/FiO2 Ratio % VBG pH (7.32-7.42) VBG pCO2 at Pat Temp (42-55) mm/Hg VBG pO2 at Pat Temp (25-40) mm/Hg VBG HCO3 (22-28) meq/L VBG O2 Sat ([place]) (95-100) VBG Base Excess (-2.0-2.0) VBG Hemoglobin VBG Carboxyhemoglobin (0.0-6.9) % T HGB POC Potassium (3.5-5.1) Glucose 299 H (70-110) Sodium 137 (137-145) mmol/L Potassium 3.8 (3.5-5.1) mmol/L Chloride 97 L (98-107) mmol/L Carbon Dioxide 28 (22-30) mmol/L Anion Gap 16.0 H (5-15) MEQ/L BUN 11 (9-20) mg/dL Creatinine 0.60 L (0.66-1.25) mg/dL Estimated GFR > 60.0 ML/MIN Hemoglobin A1c (4.5-6.0) % Calcium 8.9 (8.4-10.2) mg/dL Total Bilirubin 0.80 (0.2-1.3) mg/dL AST 25 (17-59) U/L ALT 39 (0-50) U/L Alkaline Phosphatase 86 (38-126) U/L Troponin I (0.000-0.034) ng/mL NT-Pro-B Natriuret Pep < 11.1 (0-450) pg/mL Serum Total Protein 7.6 (6.3-8.2) g/dL Albumin 4.3 (3.5-5.0) g/dL 08/24/18 08/24/18 08/24/18 Range/Units 08:30 11:10 14:10 WBC (4.0-10.5) K/mm3 RBC (4.1-5.6) M/mm3 Hgb (12.5-18.0) gm/dl Hct (42-50) % MCV (78-100) fl MCH (26-32) pg MCHC (32-36) g/dl RDW (11.5-14.0) % Plt Count (150-450) K/mm3 MPV (6-9.5) fl Gran % (36.0-66.0) % Eos # (Auto) (0-0.5) Absolute Lymphs (auto) (1.0-4.6) Absolute Monos (auto) (0.0-1.3) Lymphocytes % (24.0-44.0) % Monocytes % (0.0-12.0) % Eosinophils % (0.00-5.0) % Basophils % (0.0-0.4) % Absolute Granulocytes (1.4-6.9) Basophils # (0-0.4) PT (8.83-12.87) SECONDS INR (0.8-3.0) APTT (24.1-36.1) SECONDS D-Dimer (215-500) ng/mL pO2/FiO2 Ratio % VBG pH (7.32-7.42) VBG pCO2 at Pat Temp (42-55) mm/Hg VBG pO2 at Pat Temp (25-40) mm/Hg VBG HCO3 (22-28) meq/L VBG O2 Sat ([place]) (95-100) VBG Base Excess (-2.0-2.0) VBG Hemoglobin VBG Carboxyhemoglobin (0.0-6.9) % T HGB POC Potassium (3.5-5.1) Glucose (70-110) Sodium (137-145) mmol/L Potassium (3.5-5.1) mmol/L Chloride (98-107) mmol/L Carbon Dioxide (22-30) mmol/L Anion Gap (5-15) MEQ/L BUN (9-20) mg/dL Creatinine (0.66-1.25) mg/dL Estimated GFR ML/MIN Hemoglobin A1c (4.5-6.0) % Calcium (8.4-10.2) mg/dL Total Bilirubin (0.2-1.3) mg/dL AST (17-59) U/L ALT (0-50) U/L Alkaline Phosphatase (38-126) U/L Troponin I < 0.012 < 0.012 < 0.012 (0.000-0.034) ng/mL NT-Pro-B Natriuret Pep (0-450) pg/mL Serum Total Protein (6.3-8.2) g/dL Albumin (3.5-5.0) g/dL Micro Results-Entire Visit: Accuchecks Date 08/24/18 Time 11:30 Accucheck Value: 281 Accucheck Value: 303 - Radiology Exams Ordered Rad Exams-Entire Visit: Radiology Procedures Category Date Time Status CHEST 1 VIEW (PORTABLE) Stat Exams 08/24/18 08:15 Completed - Procedures and Test Procedures and Tests throughout Hospitalization: Therapy Orders & Screens 08/24/18 08:45 Peak Expiratory Flow Rate ONCE Comment: Reason For Exam: Diagnosis: Shortness of Breath Respiratory Therapy Assessment DAILY Comment: Diagnosis: Shortness of Breath 08/24/18 10:06 Oxygen Nasal Cannula 2 lpm Comment: Diagnosis: Shortness of Breath Respiratory Therapy Consult ROUTINE Comment: Reason For Exam: Diagnosis: Shortness of Breath 08/24/18 10:13 Respiratory Therapy Assessment DAILY Comment: Diagnosis: Shortness of Breath 08/24/18 10:15 Respiratory Nebulizer STAT Comment: Diagnosis: Shortness of Breath 08/24/18 11:05 Sleep Study With 4 or More Par ONCE Comment: Reason For Exam: Diagnosis: COPD. Hyperglycemia. - Discharge Disposition: Home, Self-Care Condition: Good Prescriptions: New Albuterol/Ipratropium 3ml Neb* [DUONEB 0.5-3 MG/3 ml Neb] 3 ml IH Q4HPRN PRN #100 ampul.neb PRN Reason: Shortness Of Breath/Wheezing Methylprednisolone Packet [Medrol Dosepack] 4 mg PO UD #1 packet Continue Furosemide 40 mg [Lasix 40 MG] 40 mg PO DAILY Losartan Potassium [Cozaar 100Mg Tablet] 100 mg PO DAILY #30 tablet Pregabalin [Lyrica 100Mg] 200 mg PO BID Metformin HCl [Glucophage] 1,000 mg PO BID Insulin Glargine [Lantus Insulin] 15 unit SQ 2000 Oxycodone / APAP 10/325 mg [Oxycodone-Acetaminophen 10-325] 1 tab PO Q6HPRN PRN PRN Reason: Pain Warfarin Sodium 12 mg PO HS Amlodipine Besylate [Norvasc] 10 mg PO DAILY Metoprolol Succinate 100 mg [Toprol Xl 100 MG] 200 mg PO DAILY Glipizide [Glipizide ER] 10 mg PO DAILY Albuterol 8 gm Mdi Hfa [Ventolin Hfa MDI] 1 - 2 puffs IH Q4-6HPRN PRN PRN Reason: Shortness Of Breath Pravastatin Sodium 40 mg PO DAILY Follow up with: TAINA NAVARRO [Primary Care Provider] - 09/01/18 12:00 pm
[2018-08-24] MEDS ORDERED: Coumadin 3 MG PO SCH (18:00)
[2018-08-24 18:33] VITALS: O2SAT 95
[2018-08-24] MEDS ORDERED: Lantus Insulin SQ SCH (20:00)
[2018-08-25] MEDS ORDERED: LOSARTAN POTASSIUM 100 MG PO SCH (10:00)
[2018-08-25] MEDS ORDERED: NON-FORMULARY ITEM (Pravastatin Sodium [Pravastatin Sodium] 40 MG) PO SCH (10:00)
[2018-08-25] MEDS ORDERED: NON-FORMULARY ITEM (Amlodipine Besylate [Norvasc] 10 MG) PO SCH (10:00)
== END 2018-08-24 17:18 | disposition home or self-care (01) ==
LOC: ED 08:10 → MED SURG 10:25
PROVIDERS: ADMIT Family Medicine; ATTEND Family Medicine
DX: J44.1 Chronic obstructive pulmonary disease with (acute) exacerbation (principal); E11.65 Type 2 diabetes mellitus with hyperglycemia; I10 Essential (primary) hypertension; Z99.81 Dependence on supplemental oxygen; Z79.01 Long term (current) use of anticoagulants; Z79.899 Other long term (current) drug therapy; Z86.711 Personal history of pulmonary embolism
CPT/HCPCS: 36000; 36415; 71045; 80053; 82805; 82947; 82962; 83036; 83880; 84484; 85025; 85379; 85610; 85730; 87040; 93005; 93041; 94150; 94640; 94760; 96360; 96372; 96374; 96375; 99285; J2930; J7609; A9270-GY